=== PATIENT | female | born 1990 | race African-American/Black ===

== ENCOUNTER 2019-01-17 22:48 | Emergency (ER) | payer OTHER ==
[2019-01-17 23:35] VITALS: BMI 33.5
[2019-01-17] MEDS ORDERED: ACETAMINOPHEN 500 MG TABLET (FP) PO ONE (23:55)
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
[2019-01-18] MEDS ORDERED: ACETAMINOPHEN 325 MG TABLET (FP) ONE (00:13)
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
[2019-01-18 04:30] VITALS: BP 107/56; PULSE 77; TEMP 98.6
== END 2019-01-18 06:00 | disposition home or self-care (01) ==
LOC: JER 22:48
PROC: BY4CZZZ Ultrasonography of Second Trimester, Single Fetus (ICD-10-PCS; principal; 2019-01-17)
DX: O99.89 Other specified diseases and conditions complicating pregnancy, childbirth and the puerperium (principal); S09.8XXA Other specified injuries of head, initial encounter; G44.309 Post-traumatic headache, unspecified, not intractable; Y04.2XXA Assault by strike against or bumped into by another person, initial encounter; Y93.89 Activity, other specified; Y92.414 Local residential or business street as the place of occurrence of the external cause; Y99.8 Other external cause status; Y07.9 Unspecified perpetrator of maltreatment and neglect; Z3A.24 24 weeks gestation of pregnancy
CPT/HCPCS: 76815-TC; 76830-TC; 99284-25

== ENCOUNTER 2019-05-08 06:37 | Inpatient (IN) | payer OTHER ==
[2019-05-08] MEDS: ELECTROLYTE-148 SOLN 1,000 ML IV SCH ×3 (08:00→17:57)
[2019-05-08 08:45] LABS: BASO % 0.8 % (0-2.0); EOS % 0.9 % (0-4.5); HEMATOCRIT 30.9 % (32.4-45.2); HEMOGLOBIN 10.1 GM/dL (10.7-15.3); LYMPH % 14.9 % (8-40); MCH 26.8 pg (25.7-33.7); MCHC 32.8 g/dl (32.0-36.0); MEAN CELL VOLUME 81.7 fl (80-96); MONO % 12.1 % (3.8-10.2); NEUT % 71.3 % (42.8-82.8); PLATELET COUNT 153 K/MM3 (134-434); RBC 3.79 M/mm3 (3.60-5.2); RDW 15.4 % (11.6-15.6); WHITE BLOOD COUNT 7.8 K/mm3 (4.0-10.0)
[2019-05-08 08:51] VITALS: BMI 45.6
[2019-05-08 09:00] LABS: BLOOD UREA NITROGEN 7.6 mg/dL (7-18); CALCIUM 8.7 mg/dL (8.5-10.1); CREATININE 0.5 mg/dL (0.55-1.3); POTASSIUM 3.8 mmol/L (3.5-5.1)
[2019-05-08] MEDS ORDERED: OXYTOCIN 30 UNITS in 0.9% NS 30 UNIT/500 ML INFUS.BAG IVPB ONE (09:10)
[2019-05-08 09:16] LABS: INR 0.99 (0.83-1.09); PROTHROMBIN TIME (PATIENT) 11.7 SEC (9.7-13.0)
[2019-05-08 09:18] LABS: ACTIVATED PTT 27.5 SECONDS (25.2-36.5)
[2019-05-08] MEDS ORDERED: DEXTROSE 5%-LACTATED RINGERS 1,000 ML IV SCH ×2 (10:00→20:15)
[2019-05-08] MEDS ORDERED: OXYTOCIN 30 UNITS in 0.9% NS 30 UNIT/500 ML INFUS.BAG IVPB SCH (10:00)
[2019-05-08] MEDS ORDERED: ELECTROLYTE-148 SOLN 1,000 ML IV SCH (10:00)
--- NOTE | 2019-05-08 11:53 | HP ---
Past Medical History - Primary Care Physician PCP:: Peri Nassar - Admission Chief Complaint: 29yo P0 @ 39.5wks with LGA fetus and advanced cervical dilation , no ctxns, no VB, no LOF, + FM. She was seen in the office 05/07/19 - after hours, found to have Fundal tim 42-43cm, significant change from last visit. with cervix being favorable - 3-4cm, I suggested labor augmentation History of Present Illness: 1. Morbid Obesity - BMI of 45 now 2. GCT - 137 and GTT wnl 3. Poor compliance with care - missed anatomy US a few times 4. all PNL testing wnl, including GBS neg History Source: Patient, Medical Record Limitations to Obtaining History: No Limitations - Past Medical History Reproductive: Yes: Other (Chlamydia 2010, negative in ) ...: 3 ...Para: 0 ...Term: 0 ...: 0 ...Spon : 0 ...Induced : 2 (1st trimester x 2) ...Multiple Gestation: 0 ...LMP: 07/28/18 ... Weeks Gestation by Dates: 40.4 ...EDC by Dates: 05/04/19 ...EDC by Sono: 05/10/19 Additional Medical History: Morbid obesity with inappropriate weight gain this - Past Surgical History Past Surgical History: Yes: None Hx Myomectomy: No Hx Transabdominal Cerclage: No Additional Surgical History: D&C x 2. one of TOPs for Chromosomal problem with fetus - Smoking History Smoking history: Never smoked Have you smoked in the past 12 months: No Aproximately how many cigarettes per day: 0 - Alcohol/Substance Use Hx Alcohol Use: No History of Substance Use: reports: None - Social History Usual Living Arrangement: Yes: With Significant Other History of Recent Travel: No Home Medications - Allergies Allergies/Adverse Reactions: Allergies Allergy/AdvReac Type Severity Reaction Status Date / Time No Known Allergies Allergy Verified 05/08/19 07:27 - Home Medications Home Medications: Ambulatory Orders Vitamins (Sjr) - 1 tab PO DAILY 04/11/19 Family Disease History - Family Disease History Family History: Unremarkable Review of Systems - Review of Systems Constitutional: reports: No Symptoms Eyes: reports: No Symptoms HENT: reports: No Symptoms Neck: reports: No Symptoms Cardiovascular: reports: No Symptoms Respiratory: reports: No Symptoms Gastrointestinal: reports: No Symptoms Genitourinary: reports: No Symptoms Breasts: reports: No Symptoms Reported Musculoskeletal: reports: No Symptoms Integumentary: reports: No Symptoms Neurological: reports: No Symptoms Endocrine: reports: No Symptoms Hematology/Lymphatic: reports: No Symptoms Psychiatric: reports: No Symptoms Physical Exam - Maternity Vital Signs: Vital Signs Temperature 97.5 F L 05/08/19 08:00 Pulse Rate 96 H 05/08/19 11:00 Respiratory Rate 18 05/08/19 11:00 Blood Pressure 118/71 05/08/19 11:00 O2 Sat by Pulse Oximetry (%) Constitutional: Yes: Well Nourished (obese), No Distress, Calm Eyes: Yes: WNL HENT: Yes: WNL, Atraumatic, Normocephalic Neck: Yes: WNL, Supple, Trachea Midline Cardiovascular: Yes: WNL, Regular Rate and Rhythm Lungs: Clear to auscultation Breast(s): Yes: WNL - Abdominal Exam/OB Fundal Height: 43 Number of Fetuses: Single Presentation: Vertex (-4) Contractions: No Monitor Mode: External Heart Rate (range): 130's Heart Rate Location: Midline Category: I Accelerations: Uniform Decelerations: None - Vaginal Exam/OB Vaginal Bleediing: No Speculum Exam: No Dilatation (cm): 4 Effacement (%): 60 Amniotic Membrane Status: Intact Presentation: Vertex/Position Station: -4 - Physical Exam Musculoskeletal: Yes: WNL Extremities: Yes: WNL Edema: No Integumentary: Yes: WNL Deep Tendon Reflex Grade: Normal +2 ...Motor Strength: WNL Psychiatric: Yes: WNL, Alert, Oriented - Labs Lab Results: CBC, BMP 05/08/19 08:02 05/08/19 08:02 Assessment/Plan 29yo P0 @ 39.5wks Advance cervical dialation LGA Admit to L&D, Labs, IVF recommended labor augmentation with Pitocin, since cervix is favorable strictly monitor progress of labor, and consider c/section if no head descent risk of Shoulder distocia and c/section discussed
--- NOTE | 2019-05-08 12:58 | PN ---
Progress Note, Labor Vaginal Exam #1 Labor Exam Date: 05/08/19 Labor Exam Time: 13:00 Heart Rate (range): 130 Category 1 Dilatation: 5-6cm Effacement (%): 90 Amniotic Membrane Status: Intact Presentation: Vertex/Position Station: -3 Remarks: AROM performed, Clear, very small amount no head descent noted Patient comfortable, declining any pain management Will continue observing labor progress patient understands, likely LGA baby if no head descent in 2 hours will consider c/section
[2019-05-08] MEDS ORDERED: FENTANYL/BUPIVACAINE/NS/PF - PCEA - 50 ML DISP.SYRIN EP ONE (15:02)
--- NOTE | 2019-05-08 15:08 | PN ---
Progress Note, Labor Vaginal Exam #2 Labor Exam Date: 05/08/19 Labor Exam Time: 15:00 Heart Rate (range): 130's Category 1 Dilatation: 6-7 Effacement (%): 90 Amniotic Membrane Status: Ruptured Presentation: Vertex/Position Station: -2 Remarks: Slow head descent Asking for pain medication Recommended Epidural Risk of shoulder distocia explained with possible trauma, and hand paralysis Explained I need patient's full attention when she pushes Explained If I gave her sedition she would not be able to follow commands in second stage of labor If she needs emergency c/section she would require general anesthesia, if she does not accept an epidural patient agreed to an epidural anesthesia
[2019-05-08] MEDS ORDERED: NALOXONE HCL 0.4 MG/ML VIAL IVPUSH PRN (15:53)
[2019-05-08] MEDS ORDERED: FENTANYL/BUPIVACAINE/NS/PF - PCEA - 50 ML DISP.SYRIN EP SCH (16:00)
[2019-05-08] MEDS ORDERED: CITRIC ACID/SODIUM CITRATE 30 ML UNIT-DOSE CUP PO ONE (18:30)
[2019-05-08] MEDS ORDERED: OXYTOCIN 20 UNITS in 0.9% NS 20 UNIT/1,000 ML INFUS.BAG IV ONE ×2 (18:49→20:24)
[2019-05-08] MEDS ORDERED: LIDO 2%/EPI 1:200000 PRESRVFRE (20 ML SDVIAL) ONE (18:50)
[2019-05-08] MEDS ORDERED: ePHEDrine SULFATE 50 MG/1 ML AMPULE ONE (18:52)
[2019-05-08] MEDS ORDERED: PHENYLEPHRINE HCL 10 MG/1 ML SINGLE DOSE VIAL ONE (18:52)
[2019-05-08] MEDS ORDERED: SODIUM CHLORIDE 0.9% P/F 10 ML VIAL IJ ONE (19:02)
[2019-05-08] MEDS ORDERED: OXYTOCIN 10 UNITS/ML VIAL ONE ×2 (19:20→19:26)
[2019-05-08] MEDS ORDERED: KETOROLAC TROMETHAMINE 30 MG/1 ML VIAL ONE (19:26)
[2019-05-08] MEDS ORDERED: IBUPROFEN 800 MG/8 ML IJ IVPB PRN (20:14)
[2019-05-08] MEDS ORDERED: BENZOCAINE 20% 57 GM BOTTLE TP PRN (20:14)
[2019-05-08] MEDS ORDERED: diphenhydrAMINE HCL 25 MG CAPSULE (FP) PO PRN (20:14)
[2019-05-08] MEDS ORDERED: WITCH HAZEL 50% (TUCKS) 40 PAD/JAR PAD TP PRN (20:14)
[2019-05-08] MEDS ORDERED: BENZOCAINE 28 GM HEMORRHOIDAL OINTMENT PR PRN (20:14)
[2019-05-08] MEDS ORDERED: METHYLERGONOVINE MALEATE 0.2 MG/1 ML AMP IM PRN (20:14)
--- NOTE | 2019-05-08 20:21 | OP ---
Operative Note - Note: Operative Date: 05/08/19 Pre-Operative Diagnosis: 29yo P0 @ 39.5 wks with LGA baby, thick meconium, Failure to dilate and descent Operation: Primary c/section Post-Operative Diagnosis: Same as Pre-op Surgeon: Peri Nassar Software Release Manager: Salma Solis Anesthesiologist/PRIMARY SCHOOL TEACHER: Trena Vitale Anesthesia: Epidural Estimated Blood Loss (mls): 600 Drains, Volume Out (mls): 200 Fluid Volume Replaced (mls): 2,000 Operative Report Dictated: Yes
--- NOTE | 2019-05-08 20:21 | PN ---
Delivery - Delivery Section: Primary Type of Anesthesia: Epidural Episiotomy/Laceration: None EBL (cc): 600 Delivery, Single - Stages of Labor Date of Delivery: 05/08/19 Date Placenta Delivered: 05/08/19 Placenta: Yes: Expressed - Condition of Infant Broom Machine Operator/Technical Training Specialist Present: Yes Name: Gabriel Mcneal Infant Gender: Male Weight: 9 lb 7 oz Position: OP - 1 Minute Total Score: 8 5 Minutes Total Score: 9 - [place] Feeding Plan Initial Plan: Elected not to breastfeed exclusively throughout hospitalization Benefits of Exclusively reinforced: Yes Remarks - Remarks Remarks: 29yo P0 @ 39.5 wks with LGA baby, thick meconium, Failure to dilate and descent Uncomplicated Primary c/section
[2019-05-08] MEDS: OXYTOCIN 20 UNITS in 0.9% NS 20 UNIT/1,000 ML INFUS.BAG IV SCH (20:30)
[2019-05-08 20:45] LABS: VENOUS PC02 41.6 mmHg (41-51); VENOUS PH 7.35 (7.31-7.41); VENOUS PO2 39.1 mmHg (30-40)
[2019-05-08] MEDS ORDERED: ONDANSETRON 4 MG/2 ML VIAL IVPUSH PRN (21:11)
[2019-05-09] MEDS: CEFAZOLIN 1 GM/D5W 1 GM/50 ML BAG IVPB SCH ×2 (01:59→09:15)
[2019-05-09 06:55] LABS: BASO % 0.4 % (0-2.0); HEMATOCRIT 25.5 % (32.4-45.2); HEMOGLOBIN 8.3 GM/dL (10.7-15.3); LYMPH % 8.2 % (8-40); MCH 26.6 pg (25.7-33.7); MCHC 32.5 g/dl (32.0-36.0); MEAN CELL VOLUME 81.9 fl (80-96); MEAN PLT VOLUME 9.1 fl (7.5-11.1); MONO % 11.8 % (3.8-10.2); NEUT % 79.6 % (42.8-82.8); PLATELET COUNT 147 K/MM3 (134-434); RBC 3.12 M/mm3 (3.60-5.2); RDW 15.4 % (11.6-15.6); WHITE BLOOD COUNT 10.7 K/mm3 (4.0-10.0)
[2019-05-09] MEDS: ENOXAPARIN NA (PORCINE) 40 MG/0.4 ML DISP.SYRIN SQ SCH (09:15)
--- NOTE | 2019-05-09 10:48 | PN ---
Progress Note (short form) - Note Progress Note: Post op day#1.S/P C Section under spinal anesthesia with duramorph uneventful.Patient stable and has little pain for which she is on medication.No any anesthesia related problem.Patient Dc from the anesthesia care.
[2019-05-09] MEDS: IBUPROFEN 600 MG TABLET (FP) PO PRN ×2 (12:19→18:33)
[2019-05-09] MEDS: ACETAMINOPHEN 325 MG TABLET (FP) PO PRN ×2 (12:20→18:33)
[2019-05-09] MEDS: SIMETHICONE 80 MG TAB.CHEW (FP) PO PRN ×2 (12:20→18:34)
[2019-05-09] MEDS: OXYTOCIN 20 UNITS in 0.9% NS 20 UNIT/1,000 ML INFUS.BAG IV SCH (14:00)
--- NOTE | 2019-05-09 17:27 | PN ---
Post Progress Note - Subjective Subjective: Patient without acute complaints. Tolerating clears, without nausea or vomiting Voided twice From bed to chair + flatus Denies fevers or chills. Pain well controlled. Post Day: 1 Type of Delivery: Primary C/S Vital Signs: Vital Signs Temperature 98.8 F 05/09/19 13:00 Pulse Rate 96 H 05/09/19 13:00 Respiratory Rate 18 05/09/19 16:00 Blood Pressure 119/69 05/09/19 13:00 O2 Sat by Pulse Oximetry (%) 100 05/08/19 21:15 Breast Exam: Yes: Soft Uterus: Yes: Fundus Firm Incision: Yes: Dressing dry and intact Abdomen/GI: Yes: Abdomen soft Lochia: Yes: Rubra Lochia, amount: Small Extremities: Yes: Calves non-tender Perineum: Yes: Intact Activity: Other (sitting in the chair) - Labs Labs: CBC WBC 10.7 K/mm3 (4.0-10.0) H 05/09/19 06:30 RBC 3.12 M/mm3 (3.60-5.2) L 05/09/19 06:30 Hgb 8.3 GM/dL (10.7-15.3) L 05/09/19 06:30 Hct 25.5 % (32.4-45.2) L D 05/09/19 06:30 MCV 81.9 fl (80-96) 05/09/19 06:30 MCH 26.6 pg (25.7-33.7) 05/09/19 06:30 MCHC 32.5 g/dl (32.0-36.0) 05/09/19 06:30 RDW 15.4 % (11.6-15.6) 05/09/19 06:30 Plt Count 147 K/MM3 (134-434) 05/09/19 06:30 MPV 9.1 fl (7.5-11.1) 05/09/19 06:30 Absolute Neuts (auto) 8.5 K/mm3 (1.5-8.0) H 05/09/19 06:30 Neutrophils % 79.6 % (42.8-82.8) 05/09/19 06:30 Lymphocytes % 8.2 % (8-40) D 05/09/19 06:30 Monocytes % 11.8 % (3.8-10.2) H 05/09/19 06:30 Eosinophils % 0.0 % (0-4.5) D 05/09/19 06:30 Basophils % 0.4 % (0-2.0) 05/09/19 06:30 Nucleated RBC % 0 % (0-0) 05/09/19 06:30 Assessment/Plan 29yo P1 s/p 1' LST c/section for LGA, CPD, meconium VSS, Afebrile Doing well voided, passed flatus attempting to breastfeed d/c IVF encourage to ambulate Baby boy circumcised continue routine care
[2019-05-09] MEDS ORDERED: BISACODYL 10 MG SUPP.RECT PR PRN (20:14)
[2019-05-09] MEDS: oxyCODONE HCL 5 MG TABLET PO PRN (21:02)
[2019-05-10] MEDS: IBUPROFEN 600 MG TABLET (FP) PO PRN ×3 (05:58→14:18)
[2019-05-10] MEDS: ACETAMINOPHEN 325 MG TABLET (FP) PO PRN ×2 (05:59→20:43)
[2019-05-10] MEDS: ENOXAPARIN NA (PORCINE) 40 MG/0.4 ML DISP.SYRIN SQ SCH (10:57)
[2019-05-10] MEDS: SIMETHICONE 80 MG TAB.CHEW (FP) PO PRN ×2 (11:02→14:18)
[2019-05-10] MEDS: oxyCODONE HCL 5 MG TABLET PO PRN ×3 (11:03→20:43)
--- NOTE | 2019-05-10 11:27 | PN ---
Post Progress Note - Subjective Subjective: Patient without acute complaints. Reports tolerating oral intake without nausea or vomiting. Ambulating without dizziness. Denies fevers or chills. Pain well controlled with oral pain medication. without difficulty. Passing flatus. Post Day: 2 Type of Delivery: Primary C/S Vital Signs: Vital Signs Temperature 98.8 F 05/10/19 08:39 Pulse Rate 83 05/10/19 08:39 Respiratory Rate 18 05/10/19 08:39 Blood Pressure 113/62 05/10/19 08:39 O2 Sat by Pulse Oximetry (%) 100 05/08/19 21:15 Breast Exam: Yes: Soft Uterus: Yes: Fundus Firm, Fundus below umbilicus Incision: Yes: Sutures intact. No: Redness, Oozing Abdomen/GI: Yes: Abdomen soft, Tender (mild soft), Passing flatus, Tolerating PO. No: Abdominal Distention Lochia: Yes: Rubra Lochia, amount: Small Extremities: Yes: Calves non-tender, Edema (+1) Activity: Ambulating - Labs Labs: CBC WBC 10.7 K/mm3 (4.0-10.0) H 05/09/19 06:30 RBC 3.12 M/mm3 (3.60-5.2) L 05/09/19 06:30 Hgb 8.3 GM/dL (10.7-15.3) L 05/09/19 06:30 Hct 25.5 % (32.4-45.2) L D 05/09/19 06:30 MCV 81.9 fl (80-96) 05/09/19 06:30 MCH 26.6 pg (25.7-33.7) 05/09/19 06:30 MCHC 32.5 g/dl (32.0-36.0) 05/09/19 06:30 RDW 15.4 % (11.6-15.6) 05/09/19 06:30 Plt Count 147 K/MM3 (134-434) 05/09/19 06:30 MPV 9.1 fl (7.5-11.1) 05/09/19 06:30 Absolute Neuts (auto) 8.5 K/mm3 (1.5-8.0) H 05/09/19 06:30 Neutrophils % 79.6 % (42.8-82.8) 05/09/19 06:30 Lymphocytes % 8.2 % (8-40) D 05/09/19 06:30 Monocytes % 11.8 % (3.8-10.2) H 05/09/19 06:30 Eosinophils % 0.0 % (0-4.5) D 05/09/19 06:30 Basophils % 0.4 % (0-2.0) 05/09/19 06:30 Nucleated RBC % 0 % (0-0) 05/09/19 06:30 Assessment/Plan 29 yo POD # 2 s/p primary CD, afebrile, vital signs stable, doing well 1. Continue routine postoperative care. 2. Encourage ambulation and incentive spirometer use 3. Continue oral pain medication 4. Anticipate discharge home postoperative day #3 or #4
[2019-05-10] MEDS ORDERED: SENNOSIDES/DOCUSATE COMBO (SENNA PLUS) TABLET (UD) PO PRN (22:00)
[2019-05-11] MEDS: oxyCODONE HCL 5 MG TABLET PO PRN ×2 (00:36→07:24)
[2019-05-11] MEDS: ACETAMINOPHEN 325 MG TABLET (FP) PO PRN (00:36)
[2019-05-11] MEDS: IBUPROFEN 600 MG TABLET (FP) PO PRN (07:24)
[2019-05-11 07:25] LABS: BASO % 0.7 % (0-2.0); EOS % 1.5 % (0-4.5); HEMATOCRIT 24.5 % (32.4-45.2); LYMPH % 18.5 % (8-40); MCH 26.8 pg (25.7-33.7); MCHC 32.6 g/dl (32.0-36.0); MEAN CELL VOLUME 82.4 fl (80-96); MONO % 10.2 % (3.8-10.2); NEUT % 69.1 % (42.8-82.8); PLATELET COUNT 145 K/MM3 (134-434); RBC 2.98 M/mm3 (3.60-5.2); RDW 15.6 % (11.6-15.6)
[2019-05-11] MEDS: SIMETHICONE 80 MG TAB.CHEW (FP) PO PRN (07:25)
--- NOTE | 2019-05-11 07:31 | PN ---
Post Progress Note - Subjective Subjective: Patient without acute complaints. Reports tolerating oral intake without nausea or vomiting. Ambulating without dizziness. Denies fevers or chills. Pain well controlled with oral pain medication. without difficulty. Passing flatus. Post Day: 3 Type of Delivery: Primary C/S Vital Signs: Vital Signs Temperature 98.7 F 05/10/19 22:00 Pulse Rate 88 05/10/19 22:00 Respiratory Rate 19 05/10/19 22:00 Blood Pressure 103/73 05/10/19 22:00 O2 Sat by Pulse Oximetry (%) 100 05/10/19 20:54 Breast Exam: Yes: Soft Uterus: Yes: Fundus Firm Abdomen/GI: Yes: Abdomen soft, Passing flatus, Tolerating PO. No: Abdominal Distention, Tender Lochia: Yes: Rubra Lochia, amount: Small Extremities: Yes: Calves non-tender, Edema (trace) Activity: Ambulating - Labs Labs: CBC WBC 10.7 K/mm3 (4.0-10.0) H 05/09/19 06:30 RBC 3.12 M/mm3 (3.60-5.2) L 05/09/19 06:30 Hgb 8.3 GM/dL (10.7-15.3) L 05/09/19 06:30 Hct 25.5 % (32.4-45.2) L D 05/09/19 06:30 MCV 81.9 fl (80-96) 05/09/19 06:30 MCH 26.6 pg (25.7-33.7) 05/09/19 06:30 MCHC 32.5 g/dl (32.0-36.0) 05/09/19 06:30 RDW 15.4 % (11.6-15.6) 05/09/19 06:30 Plt Count 147 K/MM3 (134-434) 05/09/19 06:30 MPV 9.1 fl (7.5-11.1) 05/09/19 06:30 Absolute Neuts (auto) 8.5 K/mm3 (1.5-8.0) H 05/09/19 06:30 Neutrophils % 79.6 % (42.8-82.8) 05/09/19 06:30 Lymphocytes % 8.2 % (8-40) D 05/09/19 06:30 Monocytes % 11.8 % (3.8-10.2) H 05/09/19 06:30 Eosinophils % 0.0 % (0-4.5) D 05/09/19 06:30 Basophils % 0.4 % (0-2.0) 05/09/19 06:30 Nucleated RBC % 0 % (0-0) 05/09/19 06:30 Assessment/Plan 29 yo POD # 3 s/p primary CD, afebrile, vital signs stable, doing well 1. Patient stable for discharge home today. 2. Patient encouraged to contact MD for: - Severe pain not controlled by oral pain medication - Fevers or chills - Nausea or vomiting, intolerance of oral intake - Incision redness, tenderness or discharge 3. Patient to follow up in office in 1-2 weeks for incision check, 4-6 weeks for visit
--- NOTE | 2019-05-11 07:32 | DS ---
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 Name: Gabriel Mcneal Infant Gender: Male Weight: 9 lb 7 oz Position: OP Total Hours ROM (Hrs/Mins): 6hrs 35min - 1 Minute Total Score: 8 5 Minutes Total Score: 9 - [place] Feeding Plan Initial Plan: Elected not to breastfeed exclusively throughout hospitalization Benefits of Exclusively reinforced: Yes Discharge Summary Reason For Visit: PITOCIN AUGMENTATION Current Active Problems delivery delivered (Acute) Procedures: Principal: delivery Other Procedures: Augmentation of labor Hospital Course: Patient was admitted for labor augmentation Underwent cearean delivery for failure to progress POD # 1 patient ambulated, voiding, passing gas, tolerating oral intake and with adequate pain control. Noted to have mild asymptomatic anemia She fulfilled all criteria for discharge POD #3 Condition: Good - Instructions Diet, Activity, Other Instructions: Return to office in 1 week for incision check; 4-6 weeks for visit Physical activity Resume your normal everyday activity as tolerated no heavy lifting or exercise until seen by your surgeon. You may walk unlimited alton of and climb stairs. You may resume driving the car when you feel safe and comfortable behind the wheel. No sexual activity as instructed. Wound care If you have a bandage, leave it on, and keep dry for 48-72 hours. After that time discard the outer bandage. If they are tapes on the skin under the out of bandage leave them in place. They will peel off in the next 7 to 10 days. Do Not Peel them off. You may shower the day after surgery. If there are tapes present on the skin, you may shower over them. Diet There are no dietary restrictions. Eat healthy, high-fiber foods. Drink 6 to 8 glasses of liquid each day. This will assist in keeping your bowels are regular. Pain management You may take Tylenol or acetaminophen or Ibuprofen (for example, Motrin, Advil etc.) from my pain prescription medication is ordered should be taken as prescribed for moderate to severe pain. Call MD for any of the following: Severe pain not relieved by medication Fever of 101 or higher Excessive bleeding or drainage on dressing Inability to urinate Referrals: Peri Nassar MD [Staff Physician] - Disposition: HOME - Home Medications Comprehensive Discharge Medication List: Ambulatory Orders Vitamins (Sjr) - 1 tab PO DAILY 04/11/19
[2019-05-11] MEDS: ELECTROLYTE-148 SOLN 1,000 ML IV SCH (08:45)
[2019-05-11 09:12] VITALS: BP 112/72; PULSE 86; TEMP 97.8
[2019-05-11] MEDS: ENOXAPARIN NA (PORCINE) 40 MG/0.4 ML DISP.SYRIN SQ SCH (10:49)
--- NOTE | 2019-05-16 15:43 | PATH ---
Surgical Pathology Report Patient Name: KAELYN NI Med. Rec. 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 Specimen(s) Received PLACENTA Clinical History , 39.5 weeks, failure to dilate, meconium Final Diagnosis PLACENTA: THIRD TRIMESTER PLACENTA SHOWING YELLOW-BROWN PIGMENTED MACROPHAGES IN THE MEMBRANES, SUGGESTIVE OF MECONIUM STAINING (MILD). FOCAL CALCIFICATION PRESENT. TRIVASCULAR CORD. Electronically Signed Vinnie Hawkins M.D. Gross Description The specimen is received fresh labeled placenta and is a 696 gram, 18.5 x 14.5 x 4.0 cm. placenta with attached membranes and umbilical cord. The attached membranes are rasmussen green, meconium stained, translucent with focal opacities and insert marginally. The umbilical cord measures 18 cm. in length and averages 1.3 cm. in diameter. The cord inserts eccentrically, 4.5 cm. to the nearest margin. No true knots or strictures are identified. Cut surface of the umbilical cord reveals 3 vessels. The surface is valdivia green, meconium stained with minimal fibrin deposition and appropriate caliber vessels. The maternal surface is red-brown with focal defects. Sectioning reveals red-brown, spongy parenchyma. No lesions are identified. Food Quality Technician sections are submitted in three cassettes as follows: 1- membrane rolls and umbilical cord; 2-3- full thickness sections of placenta. /05/15/2019 [facility]05/15/2019
== END 2019-05-11 15:20 | disposition home or self-care (01) | DRG 540 ==
LOC: JLDR 06:37 → J3W 21:35
PROVIDERS: ADMIT Obstetrics & Gynecology; ATTEND Obstetrics & Gynecology
PROC: 10D00Z1 Extraction of Products of Conception, Low, Open Approach (ICD-10-PCS; principal; 2019-05-08)
DX: O62.0 Primary inadequate contractions (principal); E66.01 Morbid (severe) obesity due to excess calories; O99.213 Obesity complicating pregnancy, third trimester; O32.4XX0 Maternal care for high head at term, not applicable or unspecified; O36.63X0 Maternal care for excessive fetal growth, third trimester, not applicable or unspecified; O77.0 Labor and delivery complicated by meconium in amniotic fluid; O99.013 Anemia complicating pregnancy, third trimester; D64.9 Anemia, unspecified; Z3A.39 39 weeks gestation of pregnancy; Z37.0 Single live birth
CPT/HCPCS: 36415; 36600; 80048; 82803; 85025; 85610; 85730; 86593; 86850; 86900; 86901; 88307-TC

== ENCOUNTER 2019-05-15 13:13 | Emergency (ER) | payer OTHER ==
[2019-05-15 13:36] VITALS: BP 135/71; PULSE 95; TEMP 98.9; BMI 43.2
[2019-05-15] MEDS ORDERED: ONDANSETRON 4 MG/2 ML VIAL IVPB ONE (14:02)
[2019-05-15] MEDS ORDERED: SODIUM CHLORIDE 1,000 ML IV STA (14:02)
[2019-05-15] MEDS ORDERED: FAMOTIDINE 20 MG/50 ML IVPB 20 MG/50 ML MG IVPB ONE ×2 (14:02→14:41)
[2019-05-15] MEDS ORDERED: ACETAMINOPHEN 1000 MG/100 ML VIAL (NON FORMULARY) IVPB ONE (14:23)
--- NOTE | 2019-05-15 14:32 | PDOC ---
History of Present Illness - General Chief Complaint: Chest Pain Stated Complaint: CHEST PAIN Time Seen by Provider: 05/15/19 13:50 History Source: Patient Exam Limitations: No Limitations - History of Present Illness Initial Comments: 05/15/19 14:27 29yo F with no significant PMH presenting to ED with complaints of upper abdominal pain associated with nausea x2d. Patient gave via 7 days ago. She states that she has been feeling nauseous without vomiting. The pain is located in the epigastrum, is sharp, intermittent, radiates to the chest and to the back. She does not recall any triggers for the pain. She has not been taking any medications for it. She denies changes in bowel habits, urinary symptoms, fevers, chills, travel, new foods, sob, cough, congestion. She states surgical incision is healing well. She is bottle feeding her . PMD: PMH: none PSH: Meds: percocet Allergies: nkda Social: denies Past History - Past Medical History Allergies/Adverse Reactions: Allergies Allergy/AdvReac Type Severity Reaction Status Date / Time No Known Allergies Allergy Verified 05/15/19 13:33 Home Medications: Ambulatory Orders Vitamins (Sjr) - 1 tab PO DAILY 04/11/19 Ibuprofen [Motrin -] 600 mg PO QID #60 tablet 05/11/19 Oxycodone HCl/Acetaminophen [Percocet 5-325 mg Tablet] 1 tab PO Q6H #7 tablet MDD 4 05/11/19 Ondansetron [Zofran -] 4 mg PO BID #14 tablet 05/15/19 Ranitidine [Zantac -] 150 mg PO BID #14 tablet 05/15/19 Asthma: No Cancer: No Cardiac Disorders: No COPD: No Diabetes: No HTN: No Seizures: No Thyroid Disease: No - Reproductive History Cervical CA: No Dysfunctional Uterine Bleeding: No Ectopic : No Endometrial CA: No Polycystic Ovaries: No Therapeutic (s) & number: No Tubal Ligation: No - Immunization History Immunization Up to Date: Yes - Suicide/Smoking/Psychosocial Hx Smoking History: Never smoked Have you smoked in the past 12 months: No Number of Cigarettes Smoked Daily: 0 Hx Alcohol Use: No Drug/Substance Use Hx: No Substance Use Type: None Hx Substance Use Treatment: No Review of Systems - Review of Systems Constitutional: No: Symptoms Reported HEENTM: No: Symptoms Reported Respiratory: No: Symptoms reported Cardiac (ROS): No: Symptoms Reported ABD/GI: Yes: See HPI, Nausea, Abdominal cramping. No: Diarrhea, Vomiting : No: Symptoms Reported Musculoskeletal: Yes: See HPI, Back Pain Integumentary: No: Symptoms Reported Neurological: No: Symptoms reported *Physical Exam - Vital Signs Last Vital Signs Temp Pulse Resp BP Pulse Ox 98.9 F 95 H 20 135/71 99 05/15/19 13:34 05/15/19 13:34 05/15/19 13:34 05/15/19 13:34 05/15/19 13:34 - Physical Exam General Appearance: Yes: Appropriately Dressed, Obese. No: Apparent Distress HEENT: positive: EOMI, OMAR Neck: positive: Trachea midline, Supple Respiratory/Chest: positive: Lungs Clear, Normal Breath Sounds. negative: Crackles, Rales, Rhonchi Cardiovascular: positive: Regular Rhythm, Regular Rate, S1, S2. negative: Edema , JVD, Murmur Vascular Pulses: Dorsalis-Pedis (R): 2+, Doralis-Pedis (L): 2+ Gastrointestinal/Abdominal: positive: Normal Bowel Sounds, Soft, Tenderness ( epigastric). negative: Distended, Guarding, Rebound, Hernia, Mass Musculoskeletal: negative: CVA Tenderness Extremity: positive: Normal Capillary Refill. 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 Patient gave via 7 days ago. She states that she has been feeling nauseous without vomiting. The pain is located in the epigastrum, is sharp, intermittent, radiates to the chest and to the back. She does not recall any triggers for the pain. She has not been taking any medications for it. She denies changes in bowel habits, urinary symptoms, fevers, chills, travel, new foods, sob, cough, congestion. She states surgical incision is healing well. She is bottle feeding her . Vitals: wnl PE: epigastric tenderness w/o rebound. ddx includes but not limited to pancreatitis, cholecystitis, fatty liver, biliary colic, pud, kidney stones -labs, lipase -fluids, tylenol, zofran, pepcid -reassess for need of further imaging, symptom improvement etc labs wnl upon reassessment, pt feeling better. ua shows 2+ blood and 3rbc. pt states she still has some spotting post c- section. no dysuria. repeat abdominal exam reveals no tenderness. pt given rx for zofran and zantac. given gi f/u. pt given return precautions and dc instructions. 05/15/19 23:09 *DC/Admit/Observation/Transfer Diagnosis at time of Disposition: Nausea, Epigastric abdominal pain - Discharge Dispostion Disposition: HOME Condition at time of disposition: Improved Decision to Admit order: No - Prescriptions Prescriptions: Ondansetron [Zofran -] 4 mg PO BID #14 tablet Ranitidine [Zantac -] 150 mg PO BID #14 tablet - Referrals Referrals: Chilango Pulido MD [Primary Care Provider] - Harrison Molina MD [Staff Physician] - - Patient Instructions Printed Discharge Instructions: DI for Abdominal Pain-Adult Additional Instructions: You were seen in the emergency room today for abdominal pain and nausea. The blood work was normal. I do not know the exact cause of your pain and nausea but it could be gastritis, an irritation of the stomach. A prescription for Zofran and Zantac was sent to your pharmacy. Zofran is for nausea, you can take up to twice a day as needed for the nausea and take Zantac twice a day. Refrain from eating acidic and fried foods for the time being. I also recommend seeing a GI doctor or your primary care doctor. Referral for GI is listed below. Come back to the emergency room for worsening pain, if you start vomiting, if you feel short of breath, you are unable to have bowel movements or if any new concerning symptom develops. Thank you - Post Discharge Activity
[2019-05-15] MEDS ORDERED: ONDANSETRON 4 MG/2 ML VIAL ONE (14:41)
[2019-05-15] MEDS ORDERED: ACETAMINOPHEN INJECTION 100 ML IVPB ONE (14:41)
[2019-05-15 15:02] LABS: EOS % 1.5 % (0-4.5); HEMATOCRIT 29.4 % (32.4-45.2); HEMOGLOBIN 9.6 GM/dL (10.7-15.3); MCH 26.7 pg (25.7-33.7); MCHC 32.8 g/dl (32.0-36.0); MEAN CELL VOLUME 81.4 fl (80-96); MEAN PLT VOLUME 8.9 fl (7.5-11.1); MONO % 8.7 % (3.8-10.2); NEUT % 68.8 % (42.8-82.8); PLATELET COUNT 239 K/MM3 (134-434); RBC 3.61 M/mm3 (3.60-5.2); RDW 16.1 % (11.6-15.6); WHITE BLOOD COUNT 5.4 K/mm3 (4.0-10.0)
[2019-05-15] MEDS ORDERED: MAG HYDROX/AL HYDROX/SIMETH -MYLANTA- ORAL SUSPENSION PO ONE (15:17)
[2019-05-15] MEDS ORDERED: MAG HYDROX/AL HYDROX/SIMETH 30 ML UNIT-DOSE CUP ONE (15:17)
[2019-05-15 15:22] LABS: EPI CELLS 1.8 /HPF (0-5/HPF); HYALINE CASTS 1 /lpf (0-8); PH,URINE 5.5 (5.0-8.0); URINE APPEARANCE CLEAR; URINE BACTERIA 5.9 /hpf (NEGATIVE); URINE BILIRUBIN NEGATIVE (NEGATIVE); URINE COLOR YELLOW; URINE GLUCOSE (UA) NEGATIVE (NEGATIVE); URINE KETONE NEGATIVE (NEGATIVE); URINE LEUK ESTERASE TRACE (NEGATIVE); URINE NITRITE NEGATIVE (NEGATIVE); URINE PROTEIN NEGATIVE (NEGATIVE); URINE RBC 3 /hpf (0-4); URINE UROBILINOGEN 0.2 mg/dL (0.2-1.0); URINE WBC 4 /hpf (0-5)
[2019-05-15 15:52] LABS: BLOOD UREA NITROGEN 9.6 mg/dL (7-18); CREATININE 0.8 mg/dL (0.55-1.3); GLUCOSE,RANDOM 77 mg/dL (74-106)
[2019-05-15 15:53] LABS: ALBUMIN 2.8 g/dl (3.4-5.0); ALK PHOS 124 U/L (45-117); ANION GAP 6 MMOL/L (8-16); BILIRUBIN,TOTAL 0.2 mg/dL (0.2-1); CALCIUM 8.7 mg/dL (8.5-10.1); CHLORIDE 110 mmol/L (98-107); CO2 26 mmol/L (21-32); LIPASE 163 U/L (73-393); POTASSIUM 4.3 mmol/L (3.5-5.1); SGOT/AST 25 U/L (15-37); SGPT/ALT 35 U/L (13-61); SODIUM 141 mmol/L (136-145); TOT PROT 5.8 g/dl (6.4-8.2)
--- NOTE | 2019-05-15 16:03 | PDOC ---
Documentation entered by Ry Davila SCRIBE, acting as scribe for Peter Cooney MD. Peter Cooney MD: This documentation has been prepared by the korinaeGiovanni Elijah, SCRIBE, under my direction and personally reviewed by me in its entirety. I confirm that the documentation accurately reflects all work, treatment, procedures, and medical decision making performed by me. Attending Attestation - Resident Resident Name: Mehnaz Madison - ED Attending Attestation I have performed the following: I have examined & evaluated the patient, The case was reviewed & discussed with the resident, I agree w/resident's findings & plan - HPI HPI: 05/15/19 15:15 Patient is a 29 year old female with no reported significant past medical history who presents to the ED with intermittent pain in the upper back and chest beginning x2 days ago. Patient reports that two days after returning home from the hospital after her , she began to feel a pain in the back that quickly radiated to the chest. Patient also associates some nausea and decreased appetite. Denies SOB, Cough, Vomiting, dizziness, blurry vision, diarrhea and numbness. Allergies: NKA Surgical History: x7 days ago PCP: Dr. Pulido - Physicial Exam PE: 05/15/19 15:10 GENERAL: The patient is awake, alert, and fully oriented, Nontoxic - in no acute distress. HEAD: Normocephalic, atraumatic. EYES: extraocular movements intact, sclera anicteric, conjunctiva clear. ENT: Normal voice, Moist mucous membranes. NECK: Normal range of motion, supple LUNGS: Breath sounds equal, clear to auscultation bilaterally. No wheezes, no rhonchi, no rales. HEART: Regular rate and rhythm, normal S1 and S2 without murmur, rub or gallop. ABDOMEN: Soft, nontender, No guarding, no rebound. No CVA tenderness EXTREMITIES: Normal range of motion, trace edema NEUROLOGICAL: No facial assymetry, Normal speech, PSYCH: Normal mood, normal affect. SKIN: Warm, Dry, normal turgor, - Medical Decision Making 05/15/19 15:10 29y F (~7 days sp c-s) presnts with complaint of gradual onset of epigastric/back pain associated with nuase, notes pain is sharp and radiates fromthe mid chest/epigastrium to the back. No associated vomiting, headache, vision changes, hemetemsis, f/c, cough, sob, lower abd pain, diarrhea, melena, foul smelling vag dicharge, rivera, cp with exertion. Pt notes poor appettite the last few days. ddx - includes gastritis, pancreatitis, consider acs will ck labs, ekg, ua will give gi coctail, fluids, zofran 05/15/19 15:15 A portion of this note was documented by scribe services under my direction. I have reviewed the details of the note, within reason, and agree with the documentation with the following case summary and management plan written by me 05/15/19 17:28 pt feeling improved will dc with supportive care suspect her symptoms likely from gastritis
--- NOTE | 2019-05-16 08:29 | EKG ---
Test Reason : Blood Pressure : / mmHG Vent. Rate : 093 BPM Atrial Rate : 093 BPM P-R Int : 160 ms QRS Dur : 064 ms QT Int : 350 ms P-R-T Axes : 056 045 034 degrees QTc Int : 435 ms NORMAL SINUS RHYTHM POSSIBLE LEFT ATRIAL ENLARGEMENT BORDERLINE ECG NO PREVIOUS ECGS AVAILABLE Confirmed by DARYN WAN, DWIGHT ([id number]) on 05/16/2019 8:28:43 AM Referred By: Confirmed By:DWIGHT STEARNS MD
== END 2019-05-15 17:17 | disposition home or self-care (01) ==
LOC: JER 13:13
PROC: 3E033NZ Introduction of Analgesics, Hypnotics, Sedatives into Peripheral Vein, Percutaneous Approach (ICD-10-PCS; principal; 2019-05-15)
PROC: 3E033GC Introduction of Other Therapeutic Substance into Peripheral Vein, Percutaneous Approach (ICD-10-PCS; 2019-05-15)
PROC: 3E0337Z Introduction of Electrolytic and Water Balance Substance into Peripheral Vein, Percutaneous Approach (ICD-10-PCS; 2019-05-15)
DX: R10.13 Epigastric pain (principal); R11.0 Nausea
CPT/HCPCS: 36415; 80053; 81003; 82550; 82553; 83690; 84484; 85025; 93005; 93010; 96361; 96365; 96375; 99283-25; J0131; J7030

== ENCOUNTER 2025-06-09 13:17 | Emergency (ER) | payer OTHER ==
[2025-06-09 13:25] VITALS: TEMP 98.3; BMI 49.9
[2025-06-09 14:44] LABS: EPI CELLS 23 /uL (0-25.1); HYALINE CASTS 1 /uL (0-3.1); URINE APPEARANCE CLEAR; URINE BACTERIA 752 /uL (0-1359); URINE BILIRUBIN NEGATIVE (NEGATIVE); URINE COLOR YELLOW; URINE GLUCOSE (UA) NEGATIVE (NEGATIVE); URINE KETONE NEGATIVE (NEGATIVE); URINE LEUK ESTERASE 1+ (NEGATIVE); URINE NITRITE NEGATIVE (NEGATIVE); URINE PROTEIN NEGATIVE (NEGATIVE); URINE RBC 19 /uL (0-23.9); URINE UROBILINOGEN 0.2 mg/dL (0.2-1.0); URINE WBC 36 /uL (0-25.8)
[2025-06-09 14:45] LABS: HCG,QUALITATIVE URINE Negative
[2025-06-09 15:07] LABS: ABSOLUTE IMMATURE GRANULOCYTES 0.01 x10^3/uL (0.0-0.031); BASOPHILS # 0.06 x10^3/uL (0.01-0.08); EOSINOPHIL % 1.6 % (0.7-5.8); EOSINOPHILS # 0.08 x10^3/uL (0.04-0.36); MCHC 31.1 g/dl (32.2-35.5); MEAN CELL VOLUME 88.9 fl (79.4-94.8); MEAN PLT VOLUME 11.0 fl (9.4-12.3); MONOCYTE # 0.63 x10^3/uL (0.24-0.86); MONOCYTE % 12.3 % (4.7-12.5); RDW 15.1 % (12.1-16.8)
[2025-06-09 16:43] LABS: CO2 28.0 mmol/L (21-32); GLUCOSE,RANDOM 80.0 mg/dL (74-106)
[2025-06-09 16:46] LABS: CREATININE 0.8 mg/dL (0.55-1.3); SGOT/AST 13.0 U/L (15-37); SGPT/ALT 28.0 U/L (13-61)
[2025-06-09 16:48] LABS: TOT PROT 6.4 g/dl (6.4-8.2)
[2025-06-09 16:49] LABS: ALK PHOS 72.0 U/L (45-117)
[2025-06-09 17:46] VITALS: BP 110/69; PULSE 60; RESP 16
[2025-06-09 23:34] LABS: HIV INTERPRETATION NEGATIVE (NEGATIVE)
[2025-06-10 20:27] LABS: HCV DIAGNOSTIC IN-HOUSE W/RFLX NON-REACTIVE (NONREACTIVE)
== END 2025-06-09 18:27 | disposition home or self-care (01) ==
LOC: JER 13:17
DX: R10.31 Right lower quadrant pain (principal); M54.50 Low back pain, unspecified
CPT/HCPCS: 36415; 74177-TC; 80053; 81003; 83690; 84703; 85025; 86803; 87086; 87389; 99285-25; Q9967